=== PATIENT | male | born 1975 | race Caucasian/White ===

== ENCOUNTER 2024-05-05 13:15 | Emergency (ER) | payer OTHER ==
[~2024-05-05] VITALS: Ht 165.1 cm; Wt 84.0 kg
[2024-05-05 13:28] VITALS: O2SAT 100
[2024-05-05] MEDS ORDERED: P50 MT (15:53)
[2024-05-05] MEDS ORDERED: FAMO-135 MT (15:53)
[2024-05-05] MEDS ORDERED: DIPH25CA83 MT (15:53)
[2024-05-05 16:00] VITALS: BP 130/70; PULSE 88; RESP 18; TEMP 36.66960; O2SAT 100
== END 2024-05-05 15:59 | disposition home or self-care (01) ==
LOC: ER 13:23
DX: R21 Rash and other nonspecific skin eruption (principal); Z86.59 Personal history of other mental and behavioral disorders; Z98.890 Other specified postprocedural states
CPT/HCPCS: 99283

== ENCOUNTER 2025-03-02 17:13 | Emergency (ER) | payer MEDICAID ==
[~2025-03-02] VITALS: Ht 172.7 cm; Wt 96.0 kg
[~2025-03-02 17:13] MED LIST: DIPH25CA83 MT; FAMO-135 MT; P50 MT
[2025-03-02 17:15] VITALS: O2SAT 99
[2025-03-02 17:50] LABS: HEMATOCRIT. 43.9 % (42.0-52.0); HEMOGLOBIN. 14.8 g/dL (14.0-18.0); MEAN PLATELET VOLUME 8.2 fl (7.4-10.4); PLATELET 156 x1000/uL (130-400); RED BLOOD CELL COUNT 4.62 mill/uL (4.7-6.1); RED CELL DISTRIBUTION WIDTH 13.4 % (11.6-14.6)
[2025-03-02 18:00] LABS: CREATININE 1.0 mg/dL (0.6-1.3)
[2025-03-02 18:01] LABS: ETHANOL BLOOD 33 mg/dL (<10); UREA NITROGEN BLOOD 9 mg/dL (9-23)
[2025-03-02 18:09] LABS: LYMPHOCYTES % MANUAL 25.0 % (20.0-50.0); MONOCYTES % MANUAL 7.0 % (2.0-8.0); NEUTROPHILS % MANUAL 68.0 % (45.0-75.0); PLATELET ESTIMATE NORMAL
[2025-03-02] MEDS ORDERED: SODIUM CHL 0.9% + KCL 20MEQ/L 1,000 ML IV SCH (18:30)
[2025-03-02 21:14] LABS: CLARITY URINE CLOUDY (CLEAR); COLOR URINE YELLOW (YELLOW); GLUCOSE URINE NEGATIVE (NEGATIVE); KETONES URINE TRACE (NEGATIVE); LEUKOCYTE ESTERASE URINE NEGATIVE (NEGATIVE); NITRITE URINE NEGATIVE (NEGATIVE); OCCULT BLOOD URINE NEGATIVE (NEGATIVE); PH URINE 5.5 (4.5-8.0); PROTEIN URINE 2+ (NEGATIVE); SPECIFIC GRAVITY URINE 1.024 (1.005-1.030); UROBILINOGEN URINE 0.2 E.U./dL (0.2-1.0)
[2025-03-02 21:28] LABS: *AMPHETAMINES SCREEN URINE NEGATIVE (NEGATIVE); *BARBITURATES SCREEN URINE NEGATIVE (NEGATIVE); *BENZODIAZEPINES SCREEN URINE NEGATIVE (NEGATIVE); *COCAINE SCREEN URINE NEGATIVE (NEGATIVE); METHADONE URINE SCREEN NEGATIVE (NEGATIVE); OPIATES URINE SCREEN NEGATIVE (NEGATIVE); PHENCYCLIDINE URINE SCREEN NEGATIVE (NEGATIVE)
[2025-03-02 21:29] LABS: CANNABINOID URINE SCREEN NEGATIVE (NEGATIVE); ECSTASY MDMA SCREEN URINE NEGATIVE (NEGATIVE)
[2025-03-02 22:06] LABS: BACTERIA URINE 1+; HYALINE CASTS URINE 0-5 /lpf; RBC URINE 0-2 /hpf (0-2); SQUAMOUS EPITHELIAL CELL URINE 1+ /lpf (RARE/1+); WBC URINE 0-2 /hpf (0-2)
[2025-03-02] MEDS ORDERED: KEPP500 MT (22:35)
[2025-03-02 22:38] VITALS: BP 117/84; PULSE 95; RESP 18; TEMP 37.3; O2SAT 99
[2025-03-26] MEDS ORDERED: FOLI-43 PO (11:32)
[2025-03-26] MEDS ORDERED: THIA100T72 PO (11:32)
[2025-03-26] MEDS ORDERED: KEPP500 PO (11:32)
[2025-05-16] MEDS ORDERED: LEVE1000 MT (15:55)
== END 2025-03-02 22:45 | disposition home or self-care (01) ==
LOC: ER 17:13
DX: R56.9 Unspecified convulsions (principal); Z91.148 Patient's other noncompliance with medication regimen for other reason; Z98.890 Other specified postprocedural states
CPT/HCPCS: 80305; 80048; 81003; 80320; 85025; 36415; 70450; 93005; 99284; J3480; Z7610 ×2; G0480

== ENCOUNTER 2025-05-15 15:48 | Inpatient (IN) | payer MEDICAID ==
[~2025-05-15] VITALS: Ht 165.1 cm; Wt 86.6 kg
[~2025-05-15 15:48] MED LIST changes: +FOLI-43 PO; +KEPP500 PO; +THIA100T72 PO
[2025-05-15 15:49] VITALS: O2SAT 99
[2025-05-15] MEDS: LEVETIRACETAM 1000MG PREMIX 100 ML IV ONE (16:23)
[2025-05-15 16:51] LABS: BASOPHILS % 0.3 % (0.0-2.0); EOSINOPHILS % 0.2 % (0.0-5.0); HEMATOCRIT. 43.5 % (42.0-52.0); HEMOGLOBIN. 14.5 g/dL (14.0-18.0); LYMPHOCYTES % 21.4 % (20.0-50.0); MEAN PLATELET VOLUME 7.4 fl (7.4-10.4); MONOCYTES % 3.0 % (2.0-8.0); NEUTROPHILS % 75.1 % (40.0-76.0); PLATELET 198 x1000/uL (130-400); RED BLOOD CELL COUNT 4.72 mill/uL (4.7-6.1); RED CELL DISTRIBUTION WIDTH 14.9 % (11.6-14.6)
[2025-05-15] MEDS: SODIUM CHLORIDE 0.9% 1,000 ML IV ONE (17:02)
[2025-05-15 17:05] LABS: CREATININE 0.8 mg/dL (0.6-1.3); UREA NITROGEN BLOOD 7 mg/dL (9-23)
[2025-05-15] MEDS: LORAZEPAM 2MG/ML UD SYRINGE IV SCH (18:30)
[2025-05-15 18:34] LABS: CLARITY URINE CLEAR (CLEAR); COLOR URINE YELLOW (YELLOW); GLUCOSE URINE NEGATIVE (NEGATIVE); KETONES URINE 1+ (NEGATIVE); LEUKOCYTE ESTERASE URINE NEGATIVE (NEGATIVE); NITRITE URINE NEGATIVE (NEGATIVE); OCCULT BLOOD URINE NEGATIVE (NEGATIVE); PH URINE 5.0 (4.5-8.0); PROTEIN URINE 1+ (NEGATIVE); SPECIFIC GRAVITY URINE 1.024 (1.005-1.030); UROBILINOGEN URINE 0.2 E.U./dL (0.2-1.0)
[2025-05-15 18:45] LABS: *AMPHETAMINES SCREEN URINE NEGATIVE (NEGATIVE); *BARBITURATES SCREEN URINE NEGATIVE (NEGATIVE); *BENZODIAZEPINES SCREEN URINE PRESUMPTIVE POSITIVE (NEGATIVE); *COCAINE SCREEN URINE NEGATIVE (NEGATIVE); METHADONE URINE SCREEN NEGATIVE (NEGATIVE); OPIATES URINE SCREEN NEGATIVE (NEGATIVE); PHENCYCLIDINE URINE SCREEN NEGATIVE (NEGATIVE)
[2025-05-15 18:46] LABS: CANNABINOID URINE SCREEN NEGATIVE (NEGATIVE); ECSTASY MDMA SCREEN URINE NEGATIVE (NEGATIVE)
[2025-05-15 19:00] LABS: BACTERIA URINE RARE; RBC URINE NONE SEEN /hpf (0-2); SQUAMOUS EPITHELIAL CELL URINE RARE /lpf (RARE/1+); WBC URINE 0-2 /hpf (0-2)
[2025-05-15 20:00] VITALS: BP 116/65; PULSE 104; RESP 18; TEMP 36; O2SAT 96
[2025-05-15] MEDS ORDERED: ZOLPIDEM TARTRATE 5MG TABLET PO PRN (20:30)
[2025-05-15] MEDS ORDERED: CLONIDINE 0.1MG TABLET PO PRN (20:30)
[2025-05-15] MEDS ORDERED: MAGNESIUM/ALUMINUM HYDROXIDE/SIMETHICONE 30ML UDC PO PRN (20:30)
[2025-05-15] MEDS ORDERED: ONDANSETRON HCL 4MG/2ML INJ IV PRN (20:30)
[2025-05-15] MEDS ORDERED: DIPHENHYDRAMINE 50MG/ML VIAL IV PRN (20:30)
[2025-05-15] MEDS ORDERED: LORAZEPAM 2MG/ML UD SYRINGE IV PRN (20:30)
[2025-05-15] MEDS ORDERED: ACETAMINOPHEN 325MG TABLET PO PRN (20:30)
[2025-05-15] MEDS ORDERED: LEVETIRACETAM 1,000MG in NACL 100ML PREMIX IV SCH (21:00)
[2025-05-15] MEDS: SODIUM CHLORIDE 0.9% 3ML FLUSH IVF SCH (21:27)
[2025-05-15] MEDS: FAMOTIDINE 20MG TABLET PO SCH (21:45)
[2025-05-15] MEDS: LEVETIRACETAM 1000MG PREMIX 100 ML IV SCH (21:46)
[2025-05-15 23:10] VITALS: BP 116/65; PULSE 104; RESP 18; TEMP 36.0288
[2025-05-15] MEDS: MVI, ADULT NO.1 10 ML, FOLIC ACID 1 MG, THIAMINE HCL 100 MG in SODIUM CHLORIDE 0.9% 1,0... IV ONE (23:47)
[2025-05-15] MEDS: ACETAMINOPHEN 325MG TABLET PO PRN (23:47)
[2025-05-16] VITALS: BP 118/79; PULSE 110; RESP 18; TEMP 36.1; O2SAT 93
[2025-05-16 04:00] VITALS: BP 107/67; PULSE 95; RESP 18; TEMP 36.1; O2SAT 93; O2SAT 95
[2025-05-16 08:00] VITALS: BP 110/60; PULSE 94; RESP 16; RESP 18; TEMP 36.7; O2SAT 98
[2025-05-16 12:00] VITALS: BP 112/61; PULSE 90; RESP 17; TEMP 36.7; O2SAT 98
[2025-05-16] MEDS ORDERED: LEVE1000 MT (15:55)
[2025-05-16 16:00] VITALS: BP 117/63; PULSE 89; RESP 17; TEMP 36.7; O2SAT 98
[2025-05-16 17:41] VITALS: BP 117/63; PULSE 89; RESP 17; TEMP 98
== END 2025-05-16 19:35 | disposition home or self-care (01) | DRG 53 ==
LOC: ER 15:48 → 5WST 18:42 → EDBEDREQ 18:46 → EDBEDREQTM 18:46 → ENRESERV 19:12
PROVIDERS: ADMIT Internal Medicine; ATTEND Internal Medicine
DX: G40.909 Epilepsy, unspecified, not intractable, without status epilepticus (principal); F10.139 Alcohol abuse with withdrawal, unspecified; Z91.148 Patient's other noncompliance with medication regimen for other reason; Y90.6 Blood alcohol level of 120-199 mg/100 ml
CPT/HCPCS: 36415; 80048; 80305; 80320; 81003; 85025; 93005; 96361; 96365; 96375; 99291; J1953; J2060; J3411; J3490; J7030; G0480